=== PATIENT | female | born 1990 | race Caucasian/White ===

== ENCOUNTER → 2016-02-09 | Outpatient (CLI) | payer OTHER ==
--- NOTE | 2016-02-09 17:38 | CT ---
CT of the Lumbar Spine 1219 hours Clinical Indications: Low back pain. Previous lumbar fusion. (Z 98.1, M 51.26) Technique: Spiral imaging was obtained through the lumbar spine from T12 through S1. Images were rec onstructed thin slice axial and reconstructed in sagittal and coronal planes. Dose reduction techniqu es were utilized. Findings: Lumbar vertebral bodies are of normal height without compression fractures. There are no lytic or sclerotic osseous lesions. There is no significant scoliosis of the lumbar spine. There are no subluxations appreciated. T12-L1: Normal. L1-L2: Normal. L2-L3: No loss of disk height. There is mild diffuse disk bulge causing very mild compression upon t he dural sac without significant spinal or neuroforaminal stenosis. L3-L4: No loss of disk height. There is mild diffuse disk bulge causing very mild compression upon t he dural sac without significant spinal or neuroforaminal stenosis L4-L5: Previous surgical diskectomy with placement of disk replacement material and subsequent bony fusion across the disk space. Pedicle screws and paraspinal rods are present between L4 and L5 segmen ts along with transverse plate. The pedicle screws are in good position. The tip of the pedicle screw at the L5 level does course just through the anterior cortex and is positioned just posterior to the iliac vessels. There is partial laminectomy with the dural sac extending into this defect. L5-S1: Normal. Impression: 1. Mild disk bulge without significant consequences at L2-L3 and L3-L4. 2. Previous fusion with pedicle screws and paraspinal rods along with fusion across the disk space be tween L4 and L5 segments as detailed above.
== END ==
LOC: FIMAGING 12:01
DX: M51.26 Other intervertebral disc displacement, lumbar region (principal); Z98.1 Arthrodesis status

== ENCOUNTER → 2016-04-15 | Outpatient (CLI) | payer OTHER ==
[~2016-04-15] MED LIST: GADOBUTROL 10 ML VIAL IVP ONE
== END ==
LOC: FIMAGING 19:49
PROVIDERS: ATTEND Radiology Diagnostic Radiology
DX: R42 Dizziness and giddiness (principal); G93.0 Cerebral cysts; Z88.2 Allergy status to sulfonamides; Z88.1 Allergy status to other antibiotic agents
CPT/HCPCS: A9585

== ENCOUNTER → 2016-07-06 | Outpatient (CLI) | payer OTHER | LOC: FIMAGING 13:06 | PROVIDERS: ATTEND Surgery | DX: Z12.39 Encounter for other screening for malignant neoplasm of breast (principal); N63 Unspecified lump in breast; Z80.3 Family history of malignant neoplasm of breast ==

== ENCOUNTER 2016-07-22 06:01 | Day surgery (SDC) | payer OTHER ==
[2016-07-22] MEDS ORDERED: LR 1,000 ML IV ONE (06:23)
[2016-07-22] MEDS ORDERED: LIDOCAINE 1% 2 ML INJ ID PRN (06:23)
[2016-07-22] MEDS ORDERED: BUPIVACAINE 0.5% 30 ML SDV ONE (06:40)
--- NOTE | 2016-07-22 06:48 | PDHPUP ---
History & Physical Update H&P update statement: This history and physical update is based on an assessment of the patient which was completed after admission or registration (within 24 hours), but prior to the surgery/procedure. H&P update: H&P reviewed & patient examined, no change in patient's condition since H&P completed
[2016-07-22] MEDS ORDERED: fentaNYL 100 MCG/2 ML INJ ONE (06:56)
[2016-07-22] MEDS ORDERED: PROPOFOL 200 MG/20 ML VIAL ONE ×2 (06:56)
[2016-07-22] MEDS ORDERED: LIDOCAINE 1% 300 MG/30 ML SDV ONE (06:56)
[2016-07-22] MEDS ORDERED: LR 1,000 ML IV SCH (07:00)
[2016-07-22] MEDS: ceFAZolin 2 GM/DEXTROSE 100 ML IV ONE ×2 (07:04→08:26)
[2016-07-22] MEDS ORDERED: MIDAZOLAM 2 MG/2 ML VIAL IVP ONE (07:07)
--- NOTE | 2016-07-22 07:11 | PDANEPAE ---
ANE History of Present Illness Ms. Burgess is a 25 year old otherwise healthy female with a left breast mass. She denies URI the last 6 weeks. She reports her brother is allergic to Sulfa and she is allergic to amoxicillin. Discussed with Dr. Ruth and she will order Cefazolin for antibiotic prophylaxis. Patient has not had any difficulties with anesthesia in the past ANE Past Medical History - Cardiovascular History Hx Hypertension: No Hx Arrhythmias: No Hx Chest Pain: No Hx Coronary Artery / Peripheral Vascular Disease: No Hx CHF / Valvular Disease: No Hx Palpitations: No - Pulmonary History Hx COPD: No Hx Asthma/Reactive Airway Disease: No Hx Recent Upper Respiratory Infection: No Hx Oxygen in Use at Home: No - Neurologic History Hx Cerebrovascular Accident: No Hx Seizures: No Hx Dementia: No - Endocrine History Hx Diabetes: No - Renal History Hx Renal Disorders: No - Liver History Hx Hepatic Disorders: No - Neurological & Psychiatric Hx Hx Neurological and Psychiatric Disorders: Yes - Cancer History Hx Cancer: No - Congenital Disorder History Hx Congenital Disorders: No - GI History Hx Gastrointestinal Disorders: No - Chronic Pain History Chronic Pain: No ANE Review of Systems - Exercise capacity METS (RN): 6 METS ANE Patient History - Allergies Allergies/Adverse Reactions: amoxicillin [Amoxicillin] Allergy (Verified 07/21/16 14:28) Hives Sulfa (Sulfonamide Antibiotics) Allergy (Verified 07/21/16 14:28) Anaphylaxis - Home Medications Home Medications: Effexor 11/08/12 [Last Taken 07/21/16 20:00] Valium PRN 07/21/16 [Last Taken 1 Month Ago] - NPO status NPO Since - Liquids (Date): 07/21/16 NPO Since - Liquids (Time): 23:30 NPO Since - Solids (Date): 07/22/16 NPO Since - Solids (Time): 20:00 - Smoking Hx Smoking Status: Never smoked - Family Anes Hx Family Hx Anesthesia Complications: none ANE Labs/Vital Signs - Vital Signs Blood Pressure: 113/72 Heart Rate: 64 Respiratory Rate: 16 O2 Sat (%): 96 Height: 172.72 cm Weight: 72.575 kg ANE Physical Exam - ASA Status ASA Status: I ANE Anesthesia Plan Anesthesia Plan: MAC Urgent/Emergent Case: Iain zimmer completed preop but documented later for safe timely pt care
[2016-07-22] MEDS ORDERED: PROMETHAZINE HCL 25 MG/ML INJ IVP PRN (07:13)
[2016-07-22] MEDS ORDERED: MEPERIDINE 25 MG/ML SYR IVP PRN (07:13)
[2016-07-22] MEDS ORDERED: fentaNYL 100 MCG/2 ML INJ IVP PRN (07:13)
[2016-07-22] MEDS ORDERED: LR 500 ML IV PRN (07:13)
[2016-07-22] MEDS ORDERED: OXYCODONE/APAP 5/325 TAB PO PRN (07:13)
[2016-07-22] MEDS ORDERED: ONDANSETRON 4 MG/2 ML VIAL IVP PRN (07:13)
[2016-07-22] MEDS ORDERED: DEXAMETHASONE 4 MG/ML VIAL IVP PRN (07:13)
[2016-07-22] MEDS ORDERED: NALOXONE HCL 0.4 MG/ML INJ IVP PRN (07:13)
--- NOTE | 2016-07-22 07:52 | POSTOPPROG ---
Post Op Note Date of Operation: 07/22/16 Surgeon: Regina Palmer Floorman: martin Anesthesiologist: magno Anesthesia: IV Sedation Pre-op Diagnosis: l breast mass Post-op Diagnosis: same Indication: 25 yo with l breast mass Procedure: excisional biopsy l breast Findings: cystic tissue Inf/Abcess present in the surg proc area at time of surgery?: No EBL: Minimal Specimen(s): breast tissue
--- NOTE | 2016-07-22 08:10 | POSTANESTH ---
Post Anesthetic Evaluation Respiratory Status: Normal, Stable Level of Consciousness/Mental Status: Can Participate in Eval Pain Control: Adequate, Prn Tx Ordered Nausea/Vomiting Control: Adequate, Prn Tx Ordered Complications Possibly Related to Anesthesia: None Noted
--- NOTE | 2016-07-22 08:15 | GOP ---
[f rep st] OPERATIVE REPORT DATE OF OPERATION: 07/22/2016 SURGEON: Regina Palmer MD HONING JOB SETTER: BRO Lund. ANESTHESIA: Monitored anesthesia care with IV sedation. PREOPERATIVE DIAGNOSIS: Left breast mass. POSTOPERATIVE DIAGNOSIS: Left breast mass. PROCEDURE PERFORMED: Left breast excisional biopsy. FINDINGS: cystic tissue SPECIMENS: Left breast tissue. ESTIMATED BLOOD LOSS: 5 cc. INDICATIONS: The patient is a 25-year-old woman, who developed a mass in her left breast. DESCRIPTION OF PROCEDURE: The patient was brought into the operating room, placed supine on the table, and monitored anesthesia care with IV sedation was performed. Her left breast was prepped and draped in the usual sterile fashion. I infiltrated the area with 10 cc of 0.5% Marcaine mixed with 1% lidocaine. I made a periareolar incision. I created an inferior skin flap. I dissected down beyond the level of the mass. There was some cystic tissue in this area. This was passed off the field. Hemostasis was achieved. The wound was closed with 3-0 Vicryl, followed by 4-0 Monocryl. Mastisol, Steri-Strips, and sterile dressing were applied. She was awakened in the operating room, transferred to PACU in stable condition. /[id number]/MODL MTDD
[2016-07-22 08:39] VITALS: TEMP 97.9
[2016-07-22 09:32] VITALS: BP 114/59; PULSE 70; RESP 18; O2SAT 96
== END 2016-07-22 09:56 | disposition home or self-care (01) ==
LOC: FSGY 06:01
PROVIDERS: ATTEND Surgery
PROC: 0HBU0ZX Excision of Left Breast, Open Approach, Diagnostic (ICD-10-PCS; principal; 2016-07-22 07:30)
DX: N60.12 Diffuse cystic mastopathy of left breast (principal); Z80.3 Family history of malignant neoplasm of breast; G89.29 Other chronic pain; Z98.1 Arthrodesis status; Z88.2 Allergy status to sulfonamides
CPT/HCPCS: J0690; J2250; J2704; J3010

== ENCOUNTER 2016-11-11 09:30 | Emergency (ER) | payer OTHER ==
--- NOTE | 2016-11-11 09:42 | EDPHY ---
H & P Stated Complaint: DEPRESSION Time Seen by Provider: 11/11/16 09:41 - Personal History LMP (Females 10-55): IUD In Place Current Tetanus Diphtheria and Acellular Pertussis (TDAP): Yes Tetanus Vaccine Date: < 10 YEARS - Medical/Surgical History Hx Asthma: No Hx Chronic Respiratory Disease: No Hx Diabetes: No Hx Cardiac Disease: No Hx Renal Disease: No Hx Cirrhosis: No Hx Alcoholism: No Hx HIV/AIDS: No Hx Splenectomy or Spleen Trauma: No Other PMH: DEPRESSION, ANXIETY - Social History Smoking Status: Never smoked Constitutional: Initial Vital Signs Temperature (C) 36.7 C 11/11/16 09:31 Heart Rate 70 11/11/16 09:31 Respiratory Rate 16 11/11/16 09:31 Blood Pressure 129/79 H 11/11/16 09:31 O2 Sat (%) 96 11/11/16 09:31 O2 Delivery Mode Room Air Allergies/Adverse Reactions: amoxicillin [Amoxicillin] Allergy (Verified 11/11/16 09:34) Hives Sulfa (Sulfonamide Antibiotics) Allergy (Verified 11/11/16 09:34) Anaphylaxis Home Medications: Medication Instructions Recorded Effexor 11/08/12 Valium PRN 07/21/16 Escitalopram Oxalate [Lexapro] 10 mg PO DAILY #30 tab 11/11/16 Triazolam [Halcion 0.25MG (*)] 0.25 mg PO HS PRN #30 tab 11/11/16 Venlafaxine Xr [Effexor Xr 37.5MG 37.5 mg PO DAILY #30 cap 11/11/16 (*)] Venlafaxine Xr [Effexor Xr 75MG 75 mg PO DAILY #30 cap 11/11/16 (*)] Medical Decision Making ED Course/Re-evaluation: CHIEF COMPLAINT: Psychiatric evaluation HISTORY OF PRESENT ILLNESS: This patient is a 26 y/o female with history of depression arriving with her friend complaining of worsening emotional instability over the last two months. She has managed her depression with medications since age 11 and initially took Lexapro for 6 years, and then switched to Effexor which she has been on for the last 7 years. She has also tried Cymbalta in the past Her medication is managed by her primary care provider, Virginia Salamanca. Since Monday, she has felt severe anxiety, increased irritability, and has been crying often. She cannot identify any recurrent themes that provoke her anxiety or depression. She wakes in the night with anxiety and heart palpitations, and has been unable to sleep well. She denies suicidal or homicidal ideation. She would like to discuss a new medication regimen, as her symptoms are similar to when she developed a tolerance for Lexapro seven years ago. REVIEW OF SYSTEMS: A 10 point review of systems was performed and is negative with the exception of the elements mentioned in the history of present illness. PHYSICAL EXAM: General Appearance: Alert, well hydrated, appropriate, and non-toxic appearing. Head: Atraumatic without scalp tenderness or obvious injury Eyes: Pupils equal, round, reactive to light and accommodation, EOMI, no trauma , no injection. Throat: Mucus membranes moist. Neck: Supple, nontender, no lymphadenopathy. Respiratory: No retractions, no distress, no wheezes, and no accessory muscle use. Lungs are clear to auscultation bilaterally. Cardiovascular: Regular rate and rhythm. Good capillary refill all extremities. Gastrointestinal: Abdomen is soft, nontender, non-distended. Musculoskeletal: Normal active ROM of all extremities, atraumatic. Neurological: Alert, appropriate, and interactive. Nonfocal neuro exam. Skin: No rashes, good turgor, no nodules on palpation. Past medical history: Depression, anxiety, Past surgical history: Noncontributory Family history: Noncontributory Social history: Friend at bedside. Works in healthcare. . DIFFERENTIAL DIAGNOSIS: The differential diagnosis for the patient's depression included but was not limited to functional and major depression, situational depression, medication side effect, drugs, and alcohol abuse. MEDICAL DECISION MAKING: Patient is in no acute distress and is hemodynamically stable. Patient has known history of psychiatric disorders and is here for evaluation. Discussed medication changes as well as short-acting anti-anxiety medications. Plan to decrease Effexor dose and prescribe a taper-up of Lexapro. Since it has been seven years, the patient may respond well to this medication again. Will also prescribe Halcion for sleep aid and antianxiety. The patient is comfortable with this plan. She will follow up with her primary care provider for continued management of her medication regimen. Departure - Departure Disposition: Home, Routine, Self-Care Clinical Impression: Anxiety Depression Qualifiers: Depression Type: other depression Qualified Code(s): F32.89 - Other specified depressive episodes Condition: Good Instructions: Venlafaxine (By mouth), Escitalopram (By mouth), Depression (ED) , Anxiety (ED) Additional Instructions: 1. Decrease your Effexor to 112mg. Begin taking 5mg Lexapro for four days, then increase to 10mg. 2. Take Halcion in the evenings as prescribed as needed for sleep and anxiety reduction. 3. Return to the emergency department for suicidal ideation or any other concerns or worsening of condition. 4. Follow up with Virginia Salamanca upon her return for continued discussion of your medication regimen. Referrals: Regina Salamanca PA [Primary Care Provider] - As per Instructions Prescriptions: Escitalopram Oxalate [Lexapro] 10 mg PO DAILY #30 tab Triazolam [Halcion 0.25MG (*)] 0.25 mg PO HS PRN #30 tab PRN Reason: Sleep/Insomnia Venlafaxine Xr [Effexor Xr 37.5MG (*)] 37.5 mg PO DAILY #30 cap Venlafaxine Xr [Effexor Xr 75MG (*)] 75 mg PO DAILY #30 cap Report Scribed for: Justin Evans Report Scribed by: Jocelyne Jiang Date of Report: 11/11/16 Time of Report: 10:10
[2016-11-11 10:37] VITALS: BP 110/67; PULSE 75; RESP 14; TEMP 98.2; O2SAT 97
== END 2016-11-11 10:28 | disposition home or self-care (01) ==
DX: F41.8 Other specified anxiety disorders (principal)